=== PATIENT | female | born 1960 | race Caucasian/White ===

== ENCOUNTER 2018-06-19 09:55 | Emergency (ER) | payer OTHER ==
[~2018-06-19] VITALS: Ht 162.6 cm; Wt 49.0 kg
--- NOTE | ~2018-06-19 | EKG ---
[place] [address] [address] [facility] [place] [address] ELECTROCARDIOGRAM REPORT Name: JOHNIE CHASE [id number] Admission: 06/19/18 Attend Phys: Discharge: 06/19/18 Date of : 58 Report #: [id number] THIS REPORT FOR: //name// [facility] ED Test Date: 2018-06-19 Test Time: 10:13:53 Pat Name: JOHNIE CHASE Department: Room: Gender: F Prisoner Classification Interviewer: : 1960 Requested By: Isai Ashraf Order Number: [id number] MD: Dmitriy Buckley Measurements Intervals Sharon Rate: 89 P: 81 RI: 153 QRS: -60 QRSD: 81 T: 45 QT: 372 QTc: 453 Interpretive Statements Sinus rhythm Left anterior fascicular block Low voltage, extremity leads Nonspecific ST-T wave changes No previous ECG available for comparison Electronically Signed On 06-19-2018 13:00:44 [employer] by Dmitriy Buckley [email or web address] <ELECTRONICALLY SIGNED> By: Dmitriy Buckley MD 06/19/18 1300 1013 1013 Dmitriy Buckley MD /ABRIL
[2018-06-19 10:28] LABS: HEMATOCRIT 43.7 % (37.0-47.0); HEMOGLOBIN 15.4 gm/dL (12.0-15.0); MCH 33.3 pg (26.0-34.0); MCHC 35.2 g/dL (28.0-37.0); MCV 94.8 fL (80.0-100.0); RBC 4.62 mil/uL (4.20-5.00); RDW 12.4 % (10.5-14.5); WBC 6.6 thou/uL (4.0-11.0)
[2018-06-19 10:36] LABS: ANION GAP 8 mmol/L (7-16); BUN 11 mg/dL (7-18); CALCIUM 10.1 mg/dL (8.5-10.1); CHLORIDE 100 mmol/L (98-107); CO2 29 mmol/L (21-32); CREATININE 0.8 mg/dL (0.6-1.0); GLUCOSE 124 mg/dL (74-106); POTASSIUM 4.2 mmol/L (3.5-5.1); SODIUM 137 mmol/L (136-145)
[2018-06-19 10:44] LABS: TROPONIN-I <0.06 ng/mL (<0.06)
== END 2018-06-19 11:31 | disposition home or self-care (01) ==
LOC: ER 09:55
PROVIDERS: Emergency Medicine
DX: R55 Syncope and collapse (principal); J44.9 Chronic obstructive pulmonary disease, unspecified; I10 Essential (primary) hypertension; E03.9 Hypothyroidism, unspecified; F17.210 Nicotine dependence, cigarettes, uncomplicated